=== PATIENT | female | born 1980 | race African-American/Black ===

== ENCOUNTER 2020-09-02 10:15 | Outpatient (CLI) | payer BC, SELFPAY ==
[2020-09-02 11:29] LABS: Free T4 Free Thyroxine 0.93 ng/mL (0.78-2.19)
[2020-09-06 07:11] LABS: FSH 7.3 mIU/mL (***); LH 3.3 mIU/mL (***)
== END 2020-09-02 10:16 | disposition home or self-care (01) ==
LOC: ANHLAB 10:17
PROVIDERS: Visit Provider Obstetrics & Gynecology
DX: N92.6 Irregular menstruation, unspecified (principal)
CPT/HCPCS: 36415; 83001; 83002; 84439; 84443